=== PATIENT | male | born 1960 | race Caucasian/White ===

== ENCOUNTER 2016-11-04 10:20 | Emergency (ER) | payer SELFPAY ==
[~2016-11-04] VITALS: Ht 167.6 cm; Wt 75.7 kg
[2016-11-04 10:26] VITALS: BP 135/81
== END 2016-11-04 11:49 | disposition home or self-care (01) ==
LOC: ED 11:30
DX: L03.116 Cellulitis of left lower limb (principal); S39.92XA Unspecified injury of lower back, initial encounter; F31.9 Bipolar disorder, unspecified; X58.XXXA Exposure to other specified factors, initial encounter; Y93.89 Activity, other specified; Y99.8 Other external cause status; Y92.89 Other specified places as the place of occurrence of the external cause
CPT/HCPCS: 99283